=== PATIENT | female | born 2005 | race Caucasian/White ===

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

== ENCOUNTER 2024-02-19 09:30 | Emergency (ER) | payer OTHER ==
[~2024-02-19] VITALS: Ht 175.3 cm; Wt 96.7 kg
[~2024-02-19 09:30] MED LIST: MECL-303 PO; NAPR-337 PO; ONDA4TAB PO
[2024-02-19 09:37] VITALS: BP 128/83; PULSE 82; RESP 18; TEMP 97.9; O2SAT 98
[2024-02-19] MEDS: KETOROLAC 30 MG/ML VIAL IM ONE (10:43)
[2024-02-19] MEDS: HYDROcodone/APAP 5/325 MG 1 TAB TAB PO ONE (10:44)
[2024-02-19] MEDS ORDERED: HYDR-5080 PO (10:52)
[2024-02-19 11:02] VITALS: BP 128/83; PULSE 82; RESP 18; TEMP 97.9; O2SAT 98
== END 2024-02-19 11:02 | disposition home or self-care (01) ==
LOC: MED 09:30
DX: S62.001A Unspecified fracture of navicular [scaphoid] bone of right wrist, initial encounter for closed fracture (principal); Z79.899 Other long term (current) drug therapy; W05.1XXA Fall from non-moving nonmotorized scooter, initial encounter; Y93.89 Activity, other specified; Y92.410 Unspecified street and highway as the place of occurrence of the external cause; Y99.8 Other external cause status
CPT/HCPCS: 29125; 96372; 99283; J1885